=== PATIENT | male | born 1950 | race Caucasian/White ===

== ENCOUNTER 2020-09-19 14:11 | Emergency (ER) | payer MEDICARE, OTHER ==
--- NOTE | 2020-09-19 15:07 | EDM.PDOC ---
<Riki Miller - Last Filed: 09/19/20 16:43> ED HPI GENERAL MEDICAL PROBLEM - General Chief Complaint: General Stated Complaint: COVID + Time Seen by Provider: 09/19/20 14:40 - Related Data Allergies Allergy/AdvReac Type Severity Reaction Status Date / Time No Known Allergies Allergy Verified 09/19/20 14:50 Home Meds: Home Meds Aspirin 325 mg PO DAILY 05/17/16 [History] Furosemide 20 mg PO BID 05/17/16 [History] Losartan/Hydrochlorothiazide [Losartan-HCTZ 100-12.5 MG] 1 tab PO DAILY 05/17/16 [History] Metoprolol Tartrate 25 mg PO BID 05/17/16 [History] Montelukast Sodium 10 mg PO DAILY 05/17/16 [History] Red Yeast Rice 1,200 mg PO DAILY 05/17/16 [History] Cholecalciferol (Vitamin D3) [Vitamin D3] 2,000 unit PO DAILY 06/23/18 [History] Levothyroxine Sodium [Levo-T] 50 mcg PO BID 06/23/18 [History] Multivitamin [Multi-Vitamin Daily] 1 tab PO DAILY 06/23/18 [History] Tamsulosin HCl 0.4 mg PO DAILY 06/23/18 [History] Ubidecarenone [Coenzyme Q-10] 100 mg PO DAILY 06/23/18 [History] Departure - Departure Time of Disposition: 16:44 Disposition: DC/Tfer to [facility] 02 Clinical Impression: COVID-19 virus infection - Discharge Information Referrals: Cj Jordan MD [Primary Care Provider] - Forms: ED Department Discharge Additional Instructions: ALS transfer to [facility]. Normal saline at 125ml's/hr Dr. Prajapati, accepting physician. - Problem List & Annotations (1) COVID-19 virus infection SNOMED Code(s): 692244533 Code(s): U07.1 - COVID-19 Status: Acute - Assessment/Plan Plan: Consulted with [facility] d/t patient having elevated d-dimer with elevated creatinine. Will need further evaluation at this time. Dr. Prajapati, kindly accepted transfer. Dr. Prajapati advised giving Lovenox 1mg/kg, 6mg of Dexamethasone IV and starting IV fluids at 125ml's/hr. Patient has been stable in the ED. Vital signs are stable. discussed risks and benefits of transfer with Diego. Risks of transfer included worsening of condition, MVA, . Benefits of transfer included higher level of care facility, critical care monitoring and specialty interventions if needed. Risks of non-transfer included lack of specialized care/treatment/intervention, worsening of condition, . Benefits of non- transfer included staying in a familiar environment and close to home. Patient verbalized understanding and in agreement with transfer. is currently en route to [facility] in [place] as well at this time via another ambulance d/t complications of COVID 19. <Ting Casey D - Last Filed: 09/19/20 20:03> ED HPI GENERAL MEDICAL PROBLEM - General Source of Information: Reports: Patient History Limitations: Reports: No Limitations - History of Present Illness INITIAL COMMENTS - FREE TEXT/NARRATIVE: Patient presents to ER with complaints of weakness, body aches and shortness of breath. Was exposed to COVID while playing cards last week. has also tested positive and is currently hospitalized. patient has not been able to eat or drink well. Loss of taste and smell. No sinus congestion, sore throat or ear pain. Denies diarrhea or vomiting. Has frequent cough, nonproductive. Admits to being wheezy at times. Onset: Gradual Duration: Day(s): Location: Reports: Generalized Quality: Reports: Ache Severity: Moderate Improves with: Reports: Rest Associated Symptoms: Reports: Cough, cough w sputum, Fever/Chills, Headaches, Loss of Appetite, Malaise, Shortness of Breath, Weakness. Denies: Confusion, Chest Pain, Nausea/Vomiting Treatments CONCRETE MASON: Reports: Acetaminophen Past Medical History HEENT History: Reports: Allergic Rhinitis Cardiovascular History: Reports: Afib, Hypertension Gastrointestinal History: Reports: GERD Endocrine/Metabolic History: Reports: Diabetes, Type II Oncologic (Cancer) History: Reports: Prostate - Past Surgical History Neurological Surgical History: Reports: Lumbar Spine Social & Family History - Tobacco Use Tobacco Use Status *Q: Current Status Unknown ED ROS GENERAL - Review of Systems Review Of Systems: See Below Constitutional: Reports: Chills, Malaise, Weakness, Fatigue, Decreased Appetite. Denies: Fever HEENT: Reports: Rhinitis. Denies: Ear Pain, Sinus Problem, Throat Pain Respiratory: Reports: Shortness of Breath, Wheezing, Cough Cardiovascular: Denies: Chest Pain, Edema, Lightheadedness Endocrine: Reports: Fatigue GI/Abdominal: Denies: Abdominal Pain, Diarrhea, Nausea, Vomiting : Reports: No Symptoms Musculoskeletal: Reports: Joint Pain Skin: Reports: No Symptoms Neurological: Reports: Headache, Weakness ED EXAM, GENERAL - Physical Exam Exam: See Below Exam Limited By: No Limitations General Appearance: Alert, WD/WN, No Apparent Distress Ears: Normal External Exam, Normal TMs Nose: Normal Inspection, Normal Mucosa, No Blood Throat/Mouth: Normal Inspection, Normal Oropharynx Head: Normocephalic Neck: Normal Inspection, Supple, Non-Tender Respiratory/Chest: Decreased Breath Sounds Cardiovascular: Regular Rate, Rhythm GI/Abdominal: Normal Bowel Sounds, Soft, Non-Tender Extremities: Normal Inspection, Pedal Edema Neurological: Alert, Oriented Skin Exam: Warm, Dry Course - Vital Signs Last Recorded V/S: Last Vital Signs Temp 98.2 F 09/19/20 16:17 Pulse 72 09/19/20 16:17 Resp 22 H 09/19/20 16:17 BP 101/43 L 09/19/20 16:17 Pulse Ox 88 L 09/19/20 16:17 - Orders/Labs/Meds Orders: Active Orders 24 hr Category Date Time Status Chest 2V [CR] Stat Exams 09/19/20 14:34 Taken Labs: Laboratory Tests 09/19/20 09/19/20 09/19/20 Range/Units 14:30 14:33 14:48 WBC 6.7 (5.0-10.0) 10^3/uL RBC 4.14 L (4.50-6.00) 10^6/uL Hgb 12.5 L (14.0-18.0) g/dL Hct 37.2 L (40.0-54.0) % MCV 89.9 (82.0-94.0) fL MCH 30.2 (27.0-32.0) pg MCHC 33.6 (33.0-38.0) g/dL RDW Coeff of Blaine 14.0 (11.0-15.0) % Plt Count 193 (150-400) 10^3/uL Neut % (Auto) 83.7 (35-85) % Lymph % (Auto) 7.8 L (10-55) % [place] % (Auto) 7.8 (0-16) % Eos % (Auto) 0.5 (0-5) % Baso % (Auto) 0.2 (0-3) % Neut # (Auto) 5.57 (1.80-7.00) 10^3/uL Lymph # (Auto) 0.52 L (1.00-4.80) 10^3/uL [place]ion # (Auto) 0.52 (0.00-0.80) 10^3/uL Eos # (Auto) 0.03 (0.00-0.45) 10^3/uL Baso # (Auto) 0.01 10^3/uL PT 10.6 (9.7-12.3) SEC INR 1.05 (0.92-1.18) APTT 26.1 (23.2-32.3) SEC D-Dimer, Quantitative 3.65 H (0.00-0.50) Sodium (136-145) mEq/L Potassium (3.5-5.0) mEq/L Chloride (98-106) mEq/L Carbon Dioxide (21-32) mmol/L BUN (7-18) mg/dL Creatinine (0.7-1.3) mg/dL Est Cr Clr Drug Dosing Estimated GFR (MDRD) (>=60) mL/min Glucose (75-99) mg/dL Lactic Acid (0.4-2.0) mmol/L Calcium (8.4-10.1) mg/dL Total Bilirubin (0.0-1.0) mg/dL AST (15-37) U/L ALT (12-78) U/L Alkaline Phosphatase (46-116) U/L C-Reactive Protein (0.2-0.8) mg/dL Total Protein (6.4-8.2) g/dL Albumin (3.4-5.0) g/dL SARS CoV-2 RNA Rapid LOVELY Positive H (NEGATIVE) 09/19/20 09/19/20 Range/Units 14:48 14:48 WBC (5.0-10.0) 10^3/uL RBC (4.50-6.00) 10^6/uL Hgb (14.0-18.0) g/dL Hct (40.0-54.0) % MCV (82.0-94.0) fL MCH (27.0-32.0) pg MCHC (33.0-38.0) g/dL RDW Coeff of Blaine (11.0-15.0) % Plt Count (150-400) 10^3/uL Neut % (Auto) (35-85) % Lymph % (Auto) (10-55) % [place] % (Auto) (0-16) % Eos % (Auto) (0-5) % Baso % (Auto) (0-3) % Neut # (Auto) (1.80-7.00) 10^3/uL Lymph # (Auto) (1.00-4.80) 10^3/uL [place]ion # (Auto) (0.00-0.80) 10^3/uL Eos # (Auto) (0.00-0.45) 10^3/uL Baso # (Auto) 10^3/uL PT (9.7-12.3) SEC INR (0.92-1.18) APTT (23.2-32.3) SEC D-Dimer, Quantitative (0.00-0.50) Sodium 135 L (136-145) mEq/L Potassium 3.6 (3.5-5.0) mEq/L Chloride 97 L (98-106) mEq/L Carbon Dioxide 28 (21-32) mmol/L BUN 34 H D (7-18) mg/dL Creatinine 2.5 H D (0.7-1.3) mg/dL Est Cr Clr Drug Dosing TNP Estimated GFR (MDRD) 26 L (>=60) mL/min Glucose 175 H (75-99) mg/dL Lactic Acid 1.5 (0.4-2.0) mmol/L Calcium 8.5 (8.4-10.1) mg/dL Total Bilirubin 0.7 (0.0-1.0) mg/dL AST 33 (15-37) U/L ALT 27 (12-78) U/L Alkaline Phosphatase 113 (46-116) U/L C-Reactive Protein 21.4 H (0.2-0.8) mg/dL Total Protein 7.6 (6.4-8.2) g/dL Albumin 2.6 L (3.4-5.0) g/dL SARS CoV-2 RNA Rapid LOVELY (NEGATIVE) Meds: Medications Discontinued Medications Generic Name Dose Route Start Last Admin Trade Name Gorge PRN Reason Stop Dose Admin Dexamethasone 6 mg 09/19/20 16:28 09/19/20 16:56 Dexamethasone IVPUSH 09/19/20 16:29 6 mg ONETIME ONE Administration Enoxaparin Sodium 150 mg 09/19/20 16:30 09/19/20 16:56 Lovenox SUBCUT 150 mg Q12H JENNIFER Administration Sodium Chloride 1,000 mls @ 125 mls/hr 09/19/20 16:15 09/19/20 15:20 Normal Saline IV 125 mls/hr ASDIRECTED JENNIFER Administration - Re-Assessments/Exams Free Text/Narrative Re-Assessment/Exam: 09/19/20 1445 Labs drawn per nurse. COVID test obtained on my arrival. Oxygen sat 89-90% on arrival on room air, improves to 94% on 2 liters. 1510-COVID positive. 1530-Tor Miller to assume care of patient. Departure - Discharge Information *PRESCRIPTION DRUG MONITORING PROGRAM REVIEWED*: No *COPY OF PRESCRIPTION DRUG MONITORING REPORT IN PATIENT MAYRA: No Sepsis Event Note (ED) - Focused Exam Vital Signs: Vital Signs Temp Pulse Resp BP Pulse Ox 09/19/20 16:17 98.2 F 72 22 H 101/43 L 88 L
[2020-09-19 15:12] LABS: CHLORIDE,CL 97 mEq/L (98-106); SODIUM,NA 135 mEq/L (136-145)
[2020-09-19 15:28] LABS: PTT,PARTIAL THROMBOPLSTIN TIME 26.1 SEC (23.2-32.3)
[2020-09-19] MEDS ORDERED: Sodium Chloride 0.9% 1,000 ML IV SCH (16:15)
[2020-09-19 16:24] VITALS: BP 101/43; PULSE 72
[2020-09-19] MEDS ORDERED: Dexamethasone 4 MG/ML SDV IVPUSH ONE (16:28)
[2020-09-19] MEDS ORDERED: Enoxaparin 100 MG/1 ML Syringe SUBCUT SCH (16:30)
== END 2020-09-19 15:44 ==
LOC: CC.ED 14:11
DX: U07.1 COVID-19 (principal); I10 Essential (primary) hypertension; I48.91 Unspecified atrial fibrillation; E11.9 Type 2 diabetes mellitus without complications; Z79.82 Long term (current) use of aspirin; Z79.899 Other long term (current) drug therapy
CPT/HCPCS: 36415; 71046; 80053; 83605; 85025; 85379; 85610; 85730; 86140; 96374; 99285-25; J1100; J1650; J7030; U0002

== ENCOUNTER 2021-04-23 09:05 | Observation (INO) | payer MEDICARE, OTHER ==
[2021-04-23 10:12] LABS: PTT,PARTIAL THROMBOPLSTIN TIME 23.8 SEC (23.2-32.3)
[2021-04-23] MEDS ORDERED: Iopamidol 755 Mg/ML 100 ML Bottle IVPUSH ONE (11:42)
--- NOTE | 2021-04-23 12:51 | EDM.PDOC ---
ED HPI GENERAL MEDICAL PROBLEM - General Chief Complaint: General Stated Complaint: HEAD ACHE Time Seen by Provider: 04/23/21 09:25 Source of Information: Reports: Patient History Limitations: Reports: No Limitations - History of Present Illness INITIAL COMMENTS - FREE TEXT/NARRATIVE: Diego is a 71 yo male who presents to the ED with c/o speech issues. reports last known well to be approximately 1 pm yesterday afternoon. She reports since that time his sentences have "not been making sense." called EMS because refused to come in, but when EMS got there he refused EMS and then was agreeable to be brought in by his . At time of presentation, patient is unable to adequately explain to me what is going on. He originally says "I have a sore throat." Then he says no not throat, "sore headache." reports he has not been making any sense. Reports this morning he said he took his pills and then she found his pills scattered around the sink. He reports he did fall and hit his head yesterday, but believes he was having speech issues prior to hitting his head. He reports frontal headache. Denies any dizziness, syncope, vision changes, chest pain, shortness of breath, cough, N/V/D, urinary symptoms, edema, or pain. Denies any other injury with the fall. He is not on blood thinners. He has PMH of morbid obesity, hyperlipidemia not on statin due to intolerance, hypertension, type 2 DM diet controlled. Onset Date: 04/22/21 Onset Time: 13:00 Duration: Intermittent Associated Symptoms: Reports: Confusion, Headaches. Denies: Chest Pain, Cough, cough w sputum, Diaphoresis, Fever/Chills, Loss of Appetite, Malaise, Nausea/Vomiting, Rash, Seizure, Shortness of Breath, Syncope, Weakness Frontal Headache Pain Score (Numeric/FACES): 8 - Related Data Allergies Allergy/AdvReac Type Severity Reaction Status Date / Time alfalfa Allergy Swelling Verified 04/23/21 10:12 bee pollen Allergy Swelling Verified 04/23/21 10:12 ragweed pollen Allergy Swelling Verified 04/23/21 10:12 Home Meds: Home Meds Aspirin 325 mg PO DAILY 05/17/16 [History] Furosemide 20 mg PO BID 05/17/16 [History] Losartan/Hydrochlorothiazide [Losartan-HCTZ 100-12.5 MG] 1 tab PO DAILY 05/17/16 [History] Metoprolol Tartrate 25 mg PO BID 05/17/16 [History] Montelukast Sodium 10 mg PO DAILY 05/17/16 [History] Red Yeast Rice 1,200 mg PO DAILY 05/17/16 [History] Levothyroxine Sodium [Levo-T] 50 mcg PO DAILY 06/23/18 [History] Multivitamin [Multi-Vitamin Daily] 1 tab PO DAILY 06/23/18 [History] Tamsulosin HCl 0.4 mg PO DAILY 06/23/18 [History] Ubidecarenone [Coenzyme Q-10] 100 mg PO DAILY 06/23/18 [History] Acetaminophen [Tylenol Extra Strength] 2 tab PO BID 04/23/21 [History] Cetirizine [ZyrTEC] 1 tab PO DAILY 04/23/21 [History] Clopidogrel Bisulfate [Plavix] 75 mg PO DAILY #90 tablet 04/23/21 [Rx] Cyclobenzaprine [Flexeril] 1 tab PO ASDIRECTED 04/23/21 [History] Ibuprofen 2 tab PO ASDIRECTED PRN 04/23/21 [History] LORazepam [Ativan] 1 tab PO ASDIRECTED PRN 04/23/21 [History] Naproxen Sodium [Aleve] 1 tab PO DAILY 04/23/21 [History] Rosuvastatin Calcium [Crestor] 20 mg PO DAILY #30 tablet 04/23/21 [Rx] Turmeric/Turmeric Ext/Pepr Ext [Cvs Turmeric Complex 500 mg] 1 each PO DAILY 04/23/21 [History] Past Medical History HEENT History: Reports: Allergic Rhinitis Cardiovascular History: Reports: Afib, Hypertension Gastrointestinal History: Reports: GERD Musculoskeletal History: Reports: Gout Psychiatric History: Reports: Panic Attack Endocrine/Metabolic History: Reports: Diabetes, Type II Oncologic (Cancer) History: Reports: Prostate Other Oncologic History: hx of radiation for prostate ca - Infectious Disease History Infectious Disease History: Reports: Shingles - Past Surgical History HEENT Surgical History: Reports: Tonsillectomy Neurological Surgical History: Reports: Lumbar Spine Social & Family History - Family History Family Medical History: No Pertinent Family History - Tobacco Use Tobacco Use Status *Q: Former Tobacco User Used Tobacco, but Quit: Yes Month/Year Tobacco Last Used: 50 - Caffeine Use Caffeine Use: Reports: Coffee, Soda, Tea - Recreational Drug Use Recreational Drug Use: No ED ROS GENERAL - Review of Systems Review Of Systems: Comprehensive ROS is negative, except as noted in HPI. ED EXAM, GENERAL - Physical Exam Exam: See Below Exam Limited By: No Limitations General Appearance: Alert, WD/WN, No Apparent Distress Eye Exam: Bilateral Eye: EOMI, Normal Fundi, Normal Inspection, PERRL Head: Normocephalic, Other (tenderness right posterior scalp) Neck: Normal Inspection, Supple, Non-Tender, Full Range of Motion Respiratory/Chest: No Respiratory Distress, Lungs Clear, Normal Breath Sounds, No Accessory Muscle Use, Chest Non-Tender Cardiovascular: Normal Peripheral Pulses, Regular Rate, Rhythm, No Edema, No Gallop, No JVD, No Murmur, No Rub GI/Abdominal: Normal Bowel Sounds, Soft, Non-Tender, No Organomegaly, No Di stention, No Abnormal Bruit, No Mass Back Exam: Normal Inspection, Full Range of Motion, NT Extremities: Normal Inspection, Normal Range of Motion, Non-Tender, Normal Capillary Refill, No Pedal Edema Neurological: Alert, Oriented, CN II-XII Intact, Normal Gait, No Motor/Sensory Deficits, Other (patient with mild aphasia, unable to distinguish "feather and hammock" on NIH stroke scale, sentences with inaccurate words ) Psychiatric: Normal Affect, Normal Mood Skin Exam: Warm, Dry, Intact, Normal Color, No Rash Course - Vital Signs Last Recorded V/S: Last Vital Signs Temp 97.3 F 04/23/21 09:22 Pulse 92 04/23/21 10:35 Resp 16 04/23/21 10:35 BP 138/82 04/23/21 10:35 Pulse Ox 92 L 04/23/21 10:35 - Orders/Labs/Meds Orders: Active Orders 24 hr Category Date Time Status Ang Head [CT] Stat Exams 04/23/21 11:33 Taken CTA Neck W & W/O Contrast [Ang Neck] [CT] Stat Exams 04/23/21 11:33 Taken Head wo Cont [CT] Stat Exams 04/23/21 09:36 Taken Labs: Laboratory Tests 04/23/21 04/23/21 04/23/21 Range/Units 09:42 09:42 09:42 WBC 8.3 (5.0-10.0) 10^3/uL RBC 4.85 (4.50-6.00) 10^6/uL Hgb 14.8 (14.0-18.0) g/dL Hct 43.2 (40.0-54.0) % MCV 89.1 (82.0-94.0) fL MCH 30.5 (27.0-32.0) pg MCHC 34.3 (33.0-38.0) g/dL RDW Coeff of Blaine 13.6 (11.0-15.0) % Plt Count 188 (150-400) 10^3/uL Neut % (Auto) 80.9 (35-85) % Lymph % (Auto) 11.1 (10-55) % Falls % (Auto) 6.6 (0-16) % Eos % (Auto) 1.2 (0-5) % Baso % (Auto) 0.2 (0-3) % Neut # (Auto) 6.70 (1.80-7.00) 10^3/uL Lymph # (Auto) 0.92 L (1.00-4.80) 10^3/uL Falls # (Auto) 0.55 (0.00-0.80) 10^3/uL Eos # (Auto) 0.10 (0.00-0.45) 10^3/uL Baso # (Auto) 0.02 10^3/uL PT 10.5 (9.7-12.3) SEC INR 0.96 (0.92-1.18) APTT 23.8 (23.2-32.3) SEC Sodium (136-145) mEq/L Potassium (3.5-5.0) mEq/L Chloride (98-106) mEq/L Carbon Dioxide (21-32) mmol/L BUN (7-18) mg/dL Creatinine (0.7-1.3) mg/dL Est Cr Clr Drug Dosing mL/min Estimated GFR (MDRD) (>=60) mL/min Glucose (75-99) mg/dL Calcium (8.4-10.1) mg/dL Creatine Kinase (35-232) U/L Troponin I (0.00-0.06) ng/mL Urine Color Yellow (YELLOW) Urine Appearance Clear (CLEAR) Urine pH 6.0 (4.5-8.0) Ur Specific [place] 1.020 (1.003-1.020) Urine Protein 30 H (NEGATIVE) mg/dL Urine Glucose (UA) Negative (NEGATIVE) mg/dL Urine Ketones Negative (NEGATIVE) mg/dL Urine Occult Blood Negative (NEGATIVE) Urine Nitrite Negative (NEGATIVE) Urine Bilirubin Negative (NEGATIVE) Urine Urobilinogen 0.2 (0.2-1.0) EU/dL Ur Leukocyte Esterase Negative (NEGATIVE) Urine RBC 0-5 (0-5) /HPF Urine WBC 0-5 (0-5) /HPF 04/23/21 04/23/21 Range/Units 09:42 12:47 WBC (5.0-10.0) 10^3/uL RBC (4.50-6.00) 10^6/uL Hgb (14.0-18.0) g/dL Hct (40.0-54.0) % MCV (82.0-94.0) fL MCH (27.0-32.0) pg MCHC (33.0-38.0) g/dL RDW Coeff of Blaine (11.0-15.0) % Plt Count (150-400) 10^3/uL Neut % (Auto) (35-85) % Lymph % (Auto) (10-55) % Falls % (Auto) (0-16) % Eos % (Auto) (0-5) % Baso % (Auto) (0-3) % Neut # (Auto) (1.80-7.00) 10^3/uL Lymph # (Auto) (1.00-4.80) 10^3/uL Falls # (Auto) (0.00-0.80) 10^3/uL Eos # (Auto) (0.00-0.45) 10^3/uL Baso # (Auto) 10^3/uL PT (9.7-12.3) SEC INR (0.92-1.18) APTT (23.2-32.3) SEC Sodium 137 (136-145) mEq/L Potassium 3.9 (3.5-5.0) mEq/L Chloride 98 (98-106) mEq/L Carbon Dioxide 27 (21-32) mmol/L BUN 22 H (7-18) mg/dL Creatinine 1.2 D (0.7-1.3) mg/dL Est Cr Clr Drug Dosing 56.61 mL/min Estimated GFR (MDRD) 59 L (>=60) mL/min Glucose 187 H (75-99) mg/dL Calcium 9.4 (8.4-10.1) mg/dL Creatine Kinase 172 (35-232) U/L Troponin I 0.118 H 0.104 H (0.00-0.06) ng/mL Urine Color (YELLOW) Urine Appearance (CLEAR) Urine pH (4.5-8.0) Ur Specific [place] (1.003-1.020) Urine Protein (NEGATIVE) mg/dL Urine Glucose (UA) (NEGATIVE) mg/dL Urine Ketones (NEGATIVE) mg/dL Urine Occult Blood (NEGATIVE) Urine Nitrite (NEGATIVE) Urine Bilirubin (NEGATIVE) Urine Urobilinogen (0.2-1.0) EU/dL Ur Leukocyte Esterase (NEGATIVE) Urine RBC (0-5) /HPF Urine WBC (0-5) /HPF Meds: Medications Discontinued Medications Generic Name Dose Route Start Last Admin Trade Name Freq PRN Reason Stop Dose Admin Aspirin 325 mg 04/23/21 13:00 04/23/21 13:19 Aspirin 325 Mg Tab PO 04/23/21 13:01 325 mg ONETIME ONE Administration Atorvastatin Calcium 40 mg 04/23/21 13:01 04/23/21 13:29 Atorvastatin 20 Mg Tab PO 04/23/21 13:02 Not Given ONETIME ONE Atorvastatin Calcium 40 mg 04/23/21 13:30 04/23/21 13:29 Atorvastatin 20 Mg Tab PO 04/23/21 13:31 40 mg ONETIME ONE Administration Clopidogrel Bisulfate 300 mg 04/23/21 13:01 04/23/21 13:19 Clopidogrel 75 Mg Tab PO 04/23/21 13:02 300 mg ONETIME ONE Administration Iopamidol 100 ml 04/23/21 11:42 04/23/21 12:02 Iopamidol 755 Mg/Ml 100 Ml Bottle IVPUSH 04/23/21 11:43 100 ml ONETIME ONE Administration - Radiology Interpretation Free Text/Narrative:: Head CT negative for acute hemorrhage or ischemia. Small posterior hematoma. CT Results Date: 04/23/21 CT Results Time: 11:02 Departure - Departure Time of Disposition: 13:39 Disposition: Home, Self-Care 01 Condition: Fair Clinical Impression: TIA (transient ischemic attack) Headache Qualifiers: Headache type: post-traumatic Headache chronicity pattern: acute headache Intractability: not intractable Qualified Code(s): G44.319 - Acute post- traumatic headache, not intractable - Discharge Information *PRESCRIPTION DRUG MONITORING PROGRAM REVIEWED*: Not Applicable *COPY OF PRESCRIPTION DRUG MONITORING REPORT IN PATIENT MAYRA: Not Applicable Prescriptions: Rosuvastatin Calcium [Crestor] 20 mg PO DAILY #30 tablet Clopidogrel Bisulfate [Plavix] 75 mg PO DAILY #90 tablet Instructions: Transient Ischemic Attack, [id number] Referrals: Cj Jordan MD [Primary Care Provider] - Forms: ED Department Discharge Additional Instructions: - Continue aspirin daily - Start Plavix 75 mg daily - Start Crestor 20 mg daily - Tylenol as needed for headache - Follow up for ER recheck with Dr. Jordan FridayMay 01 at 1:00 pm - Return to ED for emergent needs Sepsis Event Note (ED) - Evaluation Sepsis Screening Result: No Definite Risk - Focused Exam Vital Signs: Vital Signs Temp Pulse Resp BP Pulse Ox 04/23/21 10:35 92 16 138/82 92 L 04/23/21 09:50 92 17 138/77 94 L 04/23/21 09:22 97.3 F 94 18 164/85 H 94 L 04/23/21 09:20 97.3 F 94 18 164/85 H 94 L - Problem List & Annotations (1) TIA (transient ischemic attack) SNOMED Code(s): 850780654 Code(s): G45.9 - TRANSIENT CEREBRAL ISCHEMIC ATTACK, UNSPECIFIED Status: Acute (2) Hypertension SNOMED Code(s): 57048150 Code(s): I10 - ESSENTIAL (PRIMARY) HYPERTENSION Status: Acute Qualifiers: Hypertension type: unspecified Qualified Code(s): I10 - Essential (primary) hypertension (3) Hyperlipidemia SNOMED Code(s): 07937250 Code(s): E78.5 - HYPERLIPIDEMIA, UNSPECIFIED Status: Acute Qualifiers: Hyperlipidemia type: mixed hyperlipidemia Qualified Code(s): E78.2 - Mixed hyperlipidemia (4) Headache SNOMED Code(s): 52386197 Code(s): R51.9 - HEADACHE, UNSPECIFIED Status: Acute Qualifiers: Headache type: post-traumatic Headache chronicity pattern: acute headache Intractability: not intractable Qualified Code(s): G44.319 - Acute post- traumatic headache, not intractable - My Orders Last 24 Hours: My Active Orders 04/23/21 09:36 Head wo Cont [CT] Stat 04/23/21 11:33 Ang Head [CT] Stat CTA Neck W & W/O Contrast [Ang Neck] [CT] Stat - Assessment/Plan Last 24 Hours: My Active Orders 04/23/21 09:36 Head wo Cont [CT] Stat 04/23/21 11:33 Ang Head [CT] Stat CTA Neck W & W/O Contrast [Ang Neck] [CT] Stat Assessment:: TIA Headache, post traumatic Hypertension Hyperlipidemia Plan: Patient is not a candidate for TPA given > 4 hours since symptom onset. Last known well yesterday at [address] head negative for acute stroke. Does reveal small posterior scalp hematoma. Consulted with Dr. Munguia, [facility] neurologist given ongoing speech di fficulties/apasia, who recommended proceeding with CTA head/neck. He did review CTA and felt to be negative. Recommended transfer to [place] for MRI given aphasia if patient agreeable. Patient refuses transfer to [place] for MRI. He also refuses MRI here on Friday. REports he cannot have an MRI as he can't sit still that long and has claustrophobia. Dr. Mcdaniels recommends giving him dose of aspirin and plavix. Recommends at least 90 days of Plavix and daily aspirin indefinitely. Also strongly recommends statin given severity of intracerebral arthrosclerosis. Patient reports he was intolerant to Lipitor in the past. Is agreeable to Crestor. Labs stable. Troponin indeterminant at 0.118 initially. Did repeat troponin after 3 hours and was 0.104. He has no chest pain or shortness of breath. Recommended at least observation stay to continue to monitor patient neuro/cardiac status. Patient refuses observation stay and is adamant about discharging home. NIH remains 1 throughout ED stay, although he does seem to be making more sense with sentence formation in comparison to arrival. Start Plavix and lipitor. Continue aspirin. Follow up with PCP for ER recheck 1 week, sooner if any issues/concerns. Return to ED for any emergent needs.
[2021-04-23] MEDS ORDERED: Aspirin 325 MG Tab PO ONE (13:00)
[2021-04-23] MEDS ORDERED: Clopidogrel 75 MG Tab PO ONE (13:01)
[2021-04-23] MEDS ORDERED: atorvaSTATin 20 MG Tab PO ONE ×3 (13:01→23:45)
[2021-04-23] MEDS ORDERED: Sodium Chloride 0.9% 10 ML Syringe FLUSH PRN (23:35)
[2021-04-23] MEDS ORDERED: Ibuprofen 200 MG Tab PO PRN (23:35)
[2021-04-23] MEDS ORDERED: Temazepam 15 MG Cap PO PRN (23:35)
[2021-04-23] MEDS ORDERED: Acetaminophen 325 MG Tab PO PRN (23:35)
[2021-04-23] MEDS ORDERED: Non-Formulary Medication 1 Each (Lorazepam 2 MG Tablet) PO PRN (23:38)
[2021-04-23] MEDS ORDERED: CYCLOBENZAPRINE 5 MG PO PRN (23:38)
[2021-04-24 07:45] LABS: CHLORIDE,CL 102 mEq/L (98-106); SODIUM,NA 140 mEq/L (136-145)
[2021-04-24] MEDS ORDERED: UBIDECARENONE 50 MG PO SCH (08:00)
[2021-04-24] MEDS ORDERED: Enoxaparin 40 MG/0.4 ML Syringe SUBCUT SCH ×2 (08:00→20:00)
[2021-04-24] MEDS ORDERED: Clopidogrel 75 MG Tab PO SCH (08:00)
[2021-04-24] MEDS ORDERED: Acetaminophen 500 MG Tab PO SCH (08:45)
[2021-04-24] MEDS ORDERED: Acetaminophen 500 MG Tab PO PRN (09:00)
[2021-04-24] MEDS: Aspirin 325 MG Tab PO SCH (09:00)
[2021-04-24] MEDS ORDERED: Losartan 100 MG Tab PO ONE (11:45)
[2021-04-24] MEDS ORDERED: Hydrochlorothiazide 12.5 MG Cap PO ONE (11:45)
[2021-04-24] MEDS ORDERED: CLOPIDOGREL 75 MG PO SCH (13:40)
[2021-04-24] MEDS ORDERED: TAMSULOSIN 0.4 MG PO SCH (20:00)
[2021-04-24] MEDS ORDERED: MONTELUKAST 10 MG PO SCH (20:00)
[2021-04-24] MEDS ORDERED: ROSUVASTATIN 40 MG PO SCH (20:00)
[2021-04-24] MEDS: METOPROLOL TARTRATE 50 MG PO SCH (20:33)
[2021-04-25] MEDS ORDERED: LEVOTHYROXINE 50 MCG PO SCH (07:00)
--- NOTE | 2021-04-25 07:13 | PN ---
DATE: 04/24/2021 S: Mr. Heller has an interesting history. Yesterday, he did have a fall, but at some point prior to this apparently, according to his , he was having some confusion and difficulty making words. He was brought into our facility, got a CT scan of his head along with a CTA of his neck. It was felt that he had an acute ischemic event, and Kiesha Joseph NP evaluated him and recommended transfer to a tertiary facility for further evaluation and MRI. He declined and ultimately went home against medical advice. Later that day, apparently, he had a frontal headache, which was worse and his speech was more indiscernible and called in and wanted him brought back here. He was in [place] at the time. We recommended he go to that facility. They did not. She brought him back home and ultimately brought him back into our emergency room late last night where he was ultimately admitted for presumptive CVA. CTA of the head and neck was reviewed and essentially negative so was his head CT. EKG was sinus rhythm with a bundle branch block, otherwise normal. His lab work has been fine. His vitals are normal since he has been here. This morning, he says he feels like he is back to normal. Has no further difficulty with speech. Has no headache. He has no signs of any deficits in the upper or lower extremities. O: HEENT: Grossly benign. NECK: His neck veins are flat. No carotid bruits heard. LUNGS: His lungs sounds are clear. CARDIAC: Tones are regular. ABDOMEN: Obese and soft. LOWER EXTREMITIES: Without edema. NEUROLOGIC: Thorough neurologic exam including cranial nerve evaluation, cerebellar signs, strength, sensation, and reflexes all appear normal. ASSESSMENT: 1. CEREBROVASCULAR ACCIDENT WITH RESOLUTION. 2. HYPERTENSION. 3. HYPERLIPIDEMIA. 4. MORBID OBESITY. P: We are going to get an echocardiogram on him, watch him further today, and he will ultimately need an MRI of the head scheduled as an outpatient. NANI/MICHEAL /[id number]
[2021-04-25] MEDS ORDERED: LOSARTAN 100 MG PO SCH (08:00)
[2021-04-25] MEDS ORDERED: CETIRIZINE 10 MG PO SCH (08:00)
[2021-04-25] MEDS ORDERED: FUROSEMIDE 20 MG PO SCH (08:00)
[2021-04-25] MEDS ORDERED: Multivitamin Tab PO SCH (08:00)
[2021-04-25] MEDS: METOPROLOL TARTRATE 50 MG PO SCH (08:48)
[2021-04-25] MEDS: Aspirin 325 MG Tab PO SCH (08:53)
[2021-04-25 08:54] VITALS: BP 139/72; PULSE 69
--- NOTE | 2021-04-25 09:20 | PCM.DCSUM1 ---
Discharge Summary - Hospital Course Free Text/Narrative:: History of Present Illness INITIAL COMMENTS - FREE TEXT/NARRATIVE: Diego is a 71 year old male who presented to the ER with with concerns of aphasia. felt he wasn't making sense with his speech. Had not been feeling well for over 24 hours. Had refused EMS after called to his home. Initial complaints by patient were vague. First stated had sore throat, then complained of headache. had reported he had fallen the day prior but his speech appeared to be affected prior to that. She also reported that his pills were found scattered in the sink. Denies any dizziness, syncope, vision changes, chest pain, shortness of breath, cough, N/V/D, urinary symptoms, edema, or pain. Denies any other injury with the fall. He is not on blood thinners. CT scan was negative. Labs show indeterminate troponin, otherwise unremarkable. Refused transfer to higher level of care to obtain MRI. CTA of head and neck were done after consulting with neurology. Was initially discharged home but brought him back in later for admission. Was started on Plavix and Crestor as well as ASA. Diagnosis: Stroke: No Modified [place] Scale: No Symptoms at All Modified Red Scale Score: 0 - Discharge Data Discharge Date: 04/25/21 Discharge Disposition: Home, Self-Care 01 Condition: Good - Referral to Home Health Primary Care Physician: Cj Jordan MD - Discharge Diagnosis/Problem(s) (1) TIA (transient ischemic attack) SNOMED Code(s): 347602945 ICD Code: G45.9 - TRANSIENT CEREBRAL ISCHEMIC ATTACK, UNSPECIFIED Status: Acute - Patient Summary/Data Complications: none Hospital Course: Patient doing well. Appetite is good. No swallowing difficulties. Ambulating without any weakness/deficit. Speech has cleared. labs have remained unremarkable. Neuro exam negative. Will discharge home on Plavix, aspirin and Crestor. - Patient Instructions Diet: Diabetic Diet Activity: As Tolerated - Discharge Plan *PRESCRIPTION DRUG MONITORING PROGRAM REVIEWED*: Not Applicable *COPY OF PRESCRIPTION DRUG MONITORING REPORT IN PATIENT MAYRA: Not Applicable Prescriptions/Med Rec: Rosuvastatin Calcium [Crestor] 20 mg PO DAILY #30 tablet Clopidogrel Bisulfate [Plavix] 75 mg PO DAILY #90 tablet Home Medications: Home Meds Aspirin 325 mg PO DAILY 05/17/16 [History] Furosemide 20 mg PO BID 05/17/16 [History] Metoprolol Tartrate 50 mg PO BID 05/17/16 [History] Montelukast Sodium 10 mg PO BEDTIME 05/17/16 [History] Red Yeast Rice 1,200 mg PO DAILY 05/17/16 [History] Levothyroxine Sodium [Levo-T] 50 mcg PO DAILY 06/23/18 [History] Multivitamin [Multi-Vitamin Daily] 1 tab PO DAILY 06/23/18 [History] Tamsulosin HCl 0.4 mg PO DAILY 06/23/18 [History] Ubidecarenone [Coenzyme Q-10] 100 mg PO DAILY 06/23/18 [History] Acetaminophen [Tylenol Extra Strength] 2 tab PO BID 04/23/21 [History] Cetirizine [ZyrTEC] 1 tab PO DAILY 04/23/21 [History] Clopidogrel Bisulfate [Plavix] 75 mg PO DAILY #90 tablet 04/23/21 [Rx] Cyclobenzaprine [Flexeril] 1 tab PO ASDIRECTED 04/23/21 [History] Ibuprofen 2 tab PO ASDIRECTED PRN 04/23/21 [History] LORazepam [Ativan] 1 tab PO ASDIRECTED PRN 04/23/21 [History] Naproxen Sodium [Aleve] 1 tab PO DAILY 04/23/21 [History] Rosuvastatin Calcium [Crestor] 20 mg PO DAILY #30 tablet 04/23/21 [Rx] Turmeric/Turmeric Ext/Pepr Ext [Cvs Turmeric Complex 500 mg] 1 each PO DAILY 04/23/21 [History] Losartan [Cozaar] 100 mg PO DAILY 04/24/21 [History] Patient Handouts: Transient Ischemic Attack, [id number] Forms: ED Department Discharge Referrals: Cj Jordan MD [Primary Care Provider] - (Is scheduled with Dr. Jordan next Friday) - Discharge Summary/Plan Comment DC Time >30 min.: No - General Info Date of Service: 04/25/21 Admission Dx/Problem (Free Text: Aphasia Functional Status: Reports: Pain Controlled, Tolerating Diet, Ambulating - Review of Systems General: Denies: Fever, Weakness, Fatigue, Malaise HEENT: Reports: No Symptoms Pulmonary: Denies: Shortness of Breath, Cough Cardiovascular: Denies: Chest Pain, Edema, Lightheadedness Gastrointestinal: Reports: No Symptoms Genitourinary: Reports: No Symptoms Musculoskeletal: Reports: No Symptoms Skin: Reports: No Symptoms Neurological: Reports: No Symptoms - Patient Data Vitals - Most Recent: Last Vital Signs Temp 97.2 F 04/25/21 04:00 Pulse 69 04/25/21 08:48 Resp 20 04/25/21 04:00 BP 139/72 04/25/21 08:48 Pulse Ox 94 L 04/25/21 04:00 Weight - Most Recent: 321 lb 11.2 oz Lab Results - Last 24 hrs: Laboratory Results - last 24 hr 04/24/21 04/25/21 Range/Units 20:30 08:24 POC Glucose 190 H 180 H (75-105) mg/dL Med Orders - Current: Current Medications Acetaminophen (Acetaminophen 325 Mg Tab) 650 mg PO Q4H PRN PRN Reason: Pain (Mild 1-3)/fever Acetaminophen (Acetaminophen 500 Mg Tab) 1,000 mg PO BID PRN PRN Reason: Pain/Fever Last Admin: 04/25/21 02:13 Dose: 1,000 mg Documented by: Aspirin (Aspirin 325 Mg Tab) 325 mg PO DAILY [facility] Last Admin: 04/25/21 08:53 Dose: 325 mg Documented by: Clopidogrel Bisulfate (Clopidogrel 75 Mg Tab Pt Own) 75 mg PO DAILY [facility] Last Admin: 04/25/21 08:50 Dose: 75 mg Documented by: Enoxaparin Sodium (Enoxaparin 40 Mg/0.4 Ml Syringe) 40 mg SUBCUT BEDTIME [facility] Last Admin: 04/24/21 20:33 Dose: 40 mg Documented by: Furosemide (Furosemide 20 Mg Tab Pt Own) 20 mg PO BID [facility] Last Admin: 04/25/21 08:47 Dose: 20 mg Documented by: Ibuprofen (Ibuprofen 200 Mg Tab) 600 mg PO Q6H PRN PRN Reason: Pain (mild 1-3) Levothyroxine Sodium (Levothyroxine 50 Mcg Tab Pt Own) 50 mcg PO ACBREAKFAST [facility] Last Admin: 04/25/21 06:20 Dose: 50 mcg Documented by: Losartan Potassium (Losartan 100 Mg Tab Pt Own) 100 mg PO DAILY [facility] Last Admin: 04/25/21 08:46 Dose: 100 mg Documented by: Metoprolol Tartrate (Metoprolol Tartrate 50 Mg Tab Pt OwnF) 50 mg PO BID [facility] Last Admin: 04/25/21 08:48 Dose: 50 mg Documented by: Montelukast Sodium (Montelukast 10 Mg Tab Pt Own) 10 mg PO BEDTIME [facility] Last Admin: 04/24/21 20:35 Dose: 10 mg Documented by: Multivitamins/Minerals/Vitamin C (Multivitamin Tab) 1 tab PO DAILY [facility] Last Admin: 04/25/21 08:53 Dose: 1 tab Documented by: Cetirizine [Zyrtec] 10 Mg Tablet Pt Own 0 tab PO DAILY [facility] Last Admin: 04/25/21 08:45 Dose: 1 tab Documented by: Ubidecarenone [ Coenzyme Q-10] 50 Mg Capsule Pt Own 0 mg PO DAILY [facility] Rosuvastatin ( Crestor) 40 Mg Tab Pt Own 0 each PO BEDTIME [facility] Last Admin: 04/24/21 20:34 Dose: 1 each Documented by: Sodium Chloride (Sodium Chloride 0.9% 10 Ml Syringe) 10 ml FLUSH ASDIRECTED PRN PRN Reason: Keep Vein Open Tamsulosin HCl (Tamsulosin 0.4 Mg Cap.Er Pt Own) 0.4 mg PO BEDTIME [facility] Last Admin: 04/24/21 20:32 Dose: 0.4 mg Documented by: Temazepam (Temazepam 15 Mg Cap) 15 mg PO BEDTIME PRN PRN Reason: Sleep Discontinued Medications Acetaminophen (Acetaminophen 500 Mg Tab) 1,000 mg PO BID [facility] Last Admin: 04/24/21 09:10 Dose: Not Given Documented by: Aspirin (Aspirin 325 Mg Tab) 325 mg PO ONETIME ONE Stop: 04/23/21 13:01 Last Admin: 04/23/21 13:19 Dose: 325 mg Documented by: Atorvastatin Calcium (Atorvastatin 20 Mg Tab) 40 mg PO ONETIME ONE Stop: 04/23/21 13:02 Last Admin: 04/23/21 13:29 Dose: Not Given Documented by: Atorvastatin Calcium (Atorvastatin 20 Mg Tab) 40 mg PO ONETIME ONE Stop: 04/23/21 13:31 Last Admin: 04/23/21 13:29 Dose: 40 mg Documented by: Atorvastatin Calcium (Atorvastatin 20 Mg Tab) 40 mg PO BEDTIME ONE Stop: 04/23/21 23:46 Last Admin: 04/23/21 23:56 Dose: Not Given Documented by: Clopidogrel Bisulfate (Clopidogrel 75 Mg Tab) 300 mg PO ONETIME ONE Stop: 04/23/21 13:02 Last Admin: 04/23/21 13:19 Dose: 300 mg Documented by: Clopidogrel Bisulfate (Clopidogrel 75 Mg Tab) 75 mg PO DAILY [facility] Last Admin: 04/24/21 09:00 Dose: 75 mg Documented by: Enoxaparin Sodium (Enoxaparin 40 Mg/0.4 Ml Syringe) 40 mg SUBCUT Q24H [facility] Last Admin: 04/24/21 09:00 Dose: Not Given Documented by: Hydrochlorothiazide (Hydrochlorothiazide 12.5 Mg Cap) 12.5 mg PO ONETIME ONE Stop: 04/24/21 11:46 Last Admin: 04/24/21 11:56 Dose: 12.5 mg Documented by: Iopamidol (Iopamidol 755 Mg/Ml 100 Ml Bottle) 100 ml IVPUSH ONETIME ONE Stop: 04/23/21 11:43 Last Admin: 04/23/21 12:02 Dose: 100 ml Documented by: Losartan Potassium (Losartan 100 Mg Tab) 100 mg PO ONETIME ONE Stop: 04/24/21 11:46 Last Admin: 04/24/21 11:56 Dose: 100 mg Documented by: Cyclobenzaprine [ Flexeril] 5 Mg Tablet Pt Own 0 tab PO Q8H PRN PRN Reason: Spasms Non-Formulary Medication (Lorazepam) 1 tab PO Q6H PRN PRN Reason: Anxiety - Exam General: Reports: Alert, Oriented HEENT: Reports: Mucous Membr. Moist/[place]: Reports: Supple Lungs: Reports: Clear to Auscultation, Normal Respiratory Effort Cardiovascular: Reports: Regular Rate, Regular Rhythm GI/Abdominal Exam: Normal Bowel Sounds, Soft, Non-Tender Extremities: Normal Inspection, No Pedal Edema Skin: Reports: Warm, Dry Neurological: Reports: No New Focal Deficit
== END 2021-04-25 11:03 | disposition home or self-care (01) ==
LOC: SUPCPDRO 09:05 → CC.ED 09:05 → CC.MS 22:37 → UNDOADMOB 22:37 → CC.MS 23:35
PROVIDERS: ADMIT Nurse Practitioner Family; ATTEND Family Medicine
DX: G45.9 Transient cerebral ischemic attack, unspecified (principal); G44.319 Acute post-traumatic headache, not intractable; E78.5 Hyperlipidemia, unspecified; I10 Essential (primary) hypertension; E11.9 Type 2 diabetes mellitus without complications; E66.01 Morbid (severe) obesity due to excess calories; Z68.42 Body mass index [BMI] 45.0-49.9, adult; Z91.048 Other nonmedicinal substance allergy status; Z91.030 Bee allergy status; Z87.891 Personal history of nicotine dependence; Z79.899 Other long term (current) drug therapy; Z79.82 Long term (current) use of aspirin
CPT/HCPCS: 36415; 70450; 70496; 70498; 80048; 81001; 82550; 82947; 84484; 85025; 85610; 85730; 86140; 93005; 93010; 93306; 96372; 99217; 99220; 99225; 99285; A9270; G0378; J1650; Q9967

== ENCOUNTER 2023-11-18 12:55 | Emergency (ER) | payer MEDICARE, OTHER ==
[2023-11-18] MEDS ORDERED: Iopamidol 755 Mg/ML 100 ML Bottle IVPUSH ONE (13:08)
[2023-11-18 13:28] LABS: BASOPHILS ABSOLUTE AUTO 0.03 10^3/uL (0.00-0.50); BASOPHILS PERCENT AUTO 0.5 % (0-1); EOSINOPHILS ABSOLUTE AUTO 0.12 10^3/uL (0.00-1.50); EOSINOPHILS PERCENT AUTO 1.9 % (0-6); HEMATOCRIT 40.2 % (42.0-52.0); HEMOGLOBIN 13.6 g/dL (14.0-18.0); IMMATURE GRAN ABSOLUTE AUTO 0.01 10^3/uL (0.00-0.49); IMMATURE GRAN PERCENT AUTO 0.2 % (0.0-4.9); LYMPHOCYTES ABSOLUTE AUTO 1.25 10^3/uL (0.60-5.00); LYMPHOCYTES PERCENT AUTO 19.7 % (24-44); MEAN CORPUSCULAR HEMOGLOBIN 30.4 pg (27.0-32.0); MEAN CORPUSCULAR HGB CONC 33.8 g/dL (32.0-36.0); MEAN CORPUSCULAR VOLUME 89.9 fL (83.0-97.0); MONOCYTES ABSOLUTE AUTO 0.45 10^3/uL (0.00-1.50); MONOCYTES PERCENT AUTO 7.1 % (0-10); NEUTROPHILS ABSOLUTE AUTO 4.48 x10^3/uL (1.80-8.00); NEUTROPHILS PERCENT AUTO 70.6 % (41-71); PLATELET COUNT,PLT 150 10^3/uL (150-400); RED BLOOD CELL COUNT 4.47 x10^6/uL (4.50-6.00); WHITE BLOOD CELL COUNT,WBC 6.3 10^3/uL (4.0-11.0)
[2023-11-18 13:49] LABS: ALBUMIN 3.5 g/dL (3.4-5.0); BILIRUBIN TOTAL 0.4 mg/dL (0.0-1.0); CALCIUM 11.2 mg/dL (8.4-10.1); CREATININE 1.8 mg/dL (0.7-1.3); EST CRCL DRUG DOSING (CG) 36.61 mL/min; MAGNESIUM 1.4 mg/dL (1.8-2.4); POTASSIUM,K 4.2 mEq/L (3.5-5.0); PROTEIN TOTAL,TP 7.7 g/dL (6.4-8.2)
[2023-11-18] MEDS ORDERED: Sodium Chloride 0.9% 1,000 ML IV STA (14:03)
[2023-11-18 17:33] VITALS: BP 117/54; PULSE 59
== END 2023-11-18 16:30 | disposition home or self-care (01) ==
LOC: CC.ED 12:55
DX: R55 Syncope and collapse (principal); I48.91 Unspecified atrial fibrillation; R06.00 Dyspnea, unspecified; I10 Essential (primary) hypertension; K21.9 Gastro-esophageal reflux disease without esophagitis; E11.9 Type 2 diabetes mellitus without complications; Z79.82 Long term (current) use of aspirin; Z79.899 Other long term (current) drug therapy; Z91.030 Bee allergy status; Z91.018 Allergy to other foods
CPT/HCPCS: 36415; 71275; 74175; 80053; 83735; 83880; 84484; 85025; 85379; 87804; 93005; 93246; 96360; 96361; 99285-25; J7030; Q9967; U0002

== ENCOUNTER 2024-07-08 04:42 | Emergency (ER) | payer MEDICARE, OTHER ==
[2024-07-08] MEDS ORDERED: Sodium Chloride 0.9% 10 ML Syringe FLUSH PRN (05:01)
[2024-07-08 05:19] LABS: BASOPHILS ABSOLUTE AUTO 0.02 10^3/uL (0.00-0.50); BASOPHILS PERCENT AUTO 0.2 % (0-1); EOSINOPHILS ABSOLUTE AUTO 0.08 10^3/uL (0.00-1.50); EOSINOPHILS PERCENT AUTO 0.8 % (0-6); HEMATOCRIT 39.4 % (42.0-52.0); HEMOGLOBIN 13.3 g/dL (14.0-18.0); IMMATURE GRAN ABSOLUTE AUTO 0.01 10^3/uL (0.00-0.49); IMMATURE GRAN PERCENT AUTO 0.1 % (0.0-4.9); LYMPHOCYTES ABSOLUTE AUTO 0.77 10^3/uL (0.60-5.00); LYMPHOCYTES PERCENT AUTO 8.2 % (24-44); MEAN CORPUSCULAR HGB CONC 33.8 g/dL (32.0-36.0); MEAN CORPUSCULAR VOLUME 88.7 fL (83.0-97.0); MONOCYTES ABSOLUTE AUTO 0.59 10^3/uL (0.00-1.50); MONOCYTES PERCENT AUTO 6.3 % (0-10); NEUTROPHILS ABSOLUTE AUTO 7.96 x10^3/uL (1.80-8.00); NEUTROPHILS PERCENT AUTO 84.4 % (41-71); PLATELET COUNT,PLT 143 10^3/uL (150-400); RED BLOOD CELL COUNT 4.44 x10^6/uL (4.50-6.00); WHITE BLOOD CELL COUNT,WBC 9.4 10^3/uL (4.0-11.0)
[2024-07-08] MEDS: Ondansetron 4 MG/2 ML SDV IVPUSH STA ×2 (05:20→05:54)
[2024-07-08] MEDS: Morphine 2 MG/ML SYRINGE IVPUSH ONE (05:36)
[2024-07-08 05:39] LABS: ALANINE AMINOTRANSFERASE,ALT 20 U/L (12-78); ALBUMIN 3.8 g/dL (3.4-5.0); ALKALINE PHOSPHATASE 83 U/L (46-116); ASPARTATE AMNIOTRANSFERASE,AST 18 U/L (15-37); BILIRUBIN TOTAL 0.3 mg/dL (0.0-1.0); BLOOD UREA NITROGEN,BUN 37 mg/dL (7-18); C-REACTIVE PROTEIN < 0.50 mg/dL (<=0.50); CALCIUM 9.6 mg/dL (8.4-10.1); CARBON DIOXIDE,CO2 29 mmol/L (21-32); CHLORIDE,CL 99 mEq/L (98-106); CREATININE 1.8 mg/dL (0.7-1.3); EST CRCL DRUG DOSING (CG) 36.05 mL/min; ESTIMATED GFR 39 mL/min (>=60); GLUCOSE RANDOM 186 mg/dL (75-99); LIPASE 65 U/L (16-77); MAGNESIUM 1.3 mg/dL (1.8-2.4); PROTEIN TOTAL,TP 7.9 g/dL (6.4-8.2); SODIUM,NA 142 mEq/L (136-145)
[2024-07-08] MEDS: Sodium Chloride 0.9% 1,000 ML IV SCH (05:43)
[2024-07-08 06:01] VITALS: BP 152/70; PULSE 69
[2024-07-08] MEDS: Alum Hydrox/Mag Hydrox/Simeth 30 ML, Lidocaine 2% 15 ML PO ONE (06:24)
[2024-07-08] MEDS: HYDROmorphone 0.5 MG/0.5 ML Syringe IVPUSH ONE ×4 (07:02→11:41)
[2024-07-08] MEDS: Piperacillin/Tazobactam 4.5 GM in Sodium Chloride 0.9% 100 ML IV ONE (10:59)
== END 2024-07-08 12:05 | disposition home or self-care (01) ==
LOC: CC.ED 04:42
DX: K81.0 Acute cholecystitis (principal); I48.91 Unspecified atrial fibrillation; E11.9 Type 2 diabetes mellitus without complications; K21.9 Gastro-esophageal reflux disease without esophagitis; I10 Essential (primary) hypertension; Z95.5 Presence of coronary angioplasty implant and graft; Z91.018 Allergy to other foods; Z91.030 Bee allergy status; Z79.890 Hormone replacement therapy; Z79.02 Long term (current) use of antithrombotics/antiplatelets; Z79.899 Other long term (current) drug therapy; Z79.84 Long term (current) use of oral hypoglycemic drugs; Z79.82 Long term (current) use of aspirin; Z86.16 Personal history of COVID-19
CPT/HCPCS: 36415; 71045; 74176; 76705; 80053; 83690; 83735; 84484; 85025; 86140; 93005; 96361; 96365; 96375; 96376; 99284-25; A9270-GY; J1170; J2270; J2405; J2543; J3490; J7030

== ENCOUNTER 2025-10-26 23:34 | Inpatient (IN) | payer MEDICARE, OTHER ==
[2025-10-27 00:45] LABS: BASOPHILS ABSOLUTE AUTO 0.03 10^3/uL (0.00-0.50); BASOPHILS PERCENT AUTO 0.4 % (0-1); EOSINOPHILS ABSOLUTE AUTO 0.01 10^3/uL (0.00-1.50); EOSINOPHILS PERCENT AUTO 0.1 % (0-6); IMMATURE GRAN ABSOLUTE AUTO 0.02 10^3/uL (0.00-0.49); IMMATURE GRAN PERCENT AUTO 0.2 % (0.0-4.9); LYMPHOCYTES ABSOLUTE AUTO 0.39 10^3/uL (0.60-5.00); LYMPHOCYTES PERCENT AUTO 4.8 % (24-44); MONOCYTES ABSOLUTE AUTO 0.67 10^3/uL (0.00-1.50); MONOCYTES PERCENT AUTO 8.3 % (0-10); NEUTROPHILS ABSOLUTE AUTO 7.00 x10^3/uL (1.80-8.00); NEUTROPHILS PERCENT AUTO 86.2 % (41-71); PLATELET COUNT,PLT 116 10^3/uL (150-400); RED BLOOD CELL COUNT 3.37 x10^6/uL (4.50-6.00); WHITE BLOOD CELL COUNT,WBC 8.1 10^3/uL (4.0-11.0)
[2025-10-27 00:56] LABS: ALANINE AMINOTRANSFERASE,ALT 22.0 U/L (12-78); ASPARTATE AMNIOTRANSFERASE,AST 29.0 U/L (15-37); BILIRUBIN TOTAL 0.5 mg/dL (0.0-1.0); BLOOD UREA NITROGEN,BUN 26.0 mg/dL (7-18); CARBON DIOXIDE,CO2 28.0 mmol/L (21-32); CHLORIDE,CL 97.0 mEq/L (98-106); CREATININE 1.9 mg/dL (0.7-1.3); EST CRCL DRUG DOSING (CG) 33.62 mL/min; ESTIMATED GFR 36.0 mL/min (>=60); GLUCOSE RANDOM 162.0 mg/dL (75-99); POTASSIUM,K 4.4 mEq/L (3.5-5.0); PROTEIN TOTAL,TP 6.7 g/dL (6.4-8.2); SODIUM,NA 135.0 mEq/L (136-145)
[2025-10-27] MEDS ORDERED: Sodium Chloride 0.9% 10 ML Syringe FLUSH PRN (02:41)
[2025-10-27] MEDS ORDERED: Ondansetron 4 MG/2 ML SDV IV PRN (02:41)
[2025-10-27] MEDS ORDERED: Ondansetron 4 MG Tab.DIS PO PRN (02:41)
[2025-10-27] MEDS: Furosemide 40 MG/4 ML VIAL IVPUSH SCH (03:33)
[2025-10-27] MEDS: Dexamethasone 4 MG/ML SDV IVPUSH ONE (03:42)
[2025-10-27] MEDS: Potassium Chloride 20 MEQ Tab.ER PO SCH (07:59)
[2025-10-27] MEDS: Dexamethasone Sod Phos Preservative Free 10 MG/ML Vial IVPUSH SCH (07:59)
[2025-10-28] MEDS: REMDESIVIR 0 MG ONE (07:36)
[2025-10-28 08:00] LABS: BASOPHILS ABSOLUTE AUTO 0.01 10^3/uL (0.00-0.50); BASOPHILS PERCENT AUTO 0.2 % (0-1); EOSINOPHILS ABSOLUTE AUTO 0.00 10^3/uL (0.00-1.50); EOSINOPHILS PERCENT AUTO 0.0 % (0-6); IMMATURE GRAN ABSOLUTE AUTO 0.01 10^3/uL (0.00-0.49); IMMATURE GRAN PERCENT AUTO 0.2 % (0.0-4.9); LYMPHOCYTES ABSOLUTE AUTO 0.31 10^3/uL (0.60-5.00); LYMPHOCYTES PERCENT AUTO 5.8 % (24-44); MONOCYTES ABSOLUTE AUTO 0.35 10^3/uL (0.00-1.50); MONOCYTES PERCENT AUTO 6.5 % (0-10); NEUTROPHILS ABSOLUTE AUTO 4.71 x10^3/uL (1.80-8.00); NEUTROPHILS PERCENT AUTO 87.3 % (41-71); PLATELET COUNT,PLT 120 10^3/uL (150-400); RED BLOOD CELL COUNT 3.29 x10^6/uL (4.50-6.00); WHITE BLOOD CELL COUNT,WBC 5.4 10^3/uL (4.0-11.0)
[2025-10-28 09:20] LABS: ALANINE AMINOTRANSFERASE,ALT 18.0 U/L (12-78); ASPARTATE AMNIOTRANSFERASE,AST 15.0 U/L (15-37); BILIRUBIN DIRECT 0.1 mg/dL (0.0-0.3); BILIRUBIN TOTAL 0.3 mg/dL (0.0-1.0); BLOOD UREA NITROGEN,BUN 38.0 mg/dL (7-18); CARBON DIOXIDE,CO2 28.0 mmol/L (21-32); CHLORIDE,CL 99.0 mEq/L (98-106); CREATININE 1.5 mg/dL (0.7-1.3); EST CRCL DRUG DOSING (CG) 42.58 mL/min; ESTIMATED GFR 48.0 mL/min (>=60); GLUCOSE RANDOM 291.0 mg/dL (75-99); POTASSIUM,K 4.0 mEq/L (3.5-5.0); PROTEIN TOTAL,TP 6.7 g/dL (6.4-8.2); SODIUM,NA 136.0 mEq/L (136-145)
[2025-10-29 07:35] LABS: BASOPHILS ABSOLUTE AUTO 0.01 10^3/uL (0.00-0.50); BASOPHILS PERCENT AUTO 0.2 % (0-1); EOSINOPHILS ABSOLUTE AUTO 0.00 10^3/uL (0.00-1.50); EOSINOPHILS PERCENT AUTO 0.0 % (0-6); IMMATURE GRAN ABSOLUTE AUTO 0.02 10^3/uL (0.00-0.49); IMMATURE GRAN PERCENT AUTO 0.4 % (0.0-4.9); LYMPHOCYTES ABSOLUTE AUTO 0.41 10^3/uL (0.60-5.00); LYMPHOCYTES PERCENT AUTO 7.4 % (24-44); MONOCYTES ABSOLUTE AUTO 0.23 10^3/uL (0.00-1.50); MONOCYTES PERCENT AUTO 4.1 % (0-10); NEUTROPHILS ABSOLUTE AUTO 4.90 x10^3/uL (1.80-8.00); NEUTROPHILS PERCENT AUTO 87.9 % (41-71); PLATELET COUNT,PLT 128 10^3/uL (150-400); RED BLOOD CELL COUNT 3.11 x10^6/uL (4.50-6.00); WHITE BLOOD CELL COUNT,WBC 5.6 10^3/uL (4.0-11.0)
[2025-10-29 07:38] LABS: ALANINE AMINOTRANSFERASE,ALT 15.0 U/L (12-78); ASPARTATE AMNIOTRANSFERASE,AST 19.0 U/L (15-37); BILIRUBIN DIRECT 0.1 mg/dL (0.0-0.3); BILIRUBIN TOTAL 0.1 mg/dL (0.0-1.0); BLOOD UREA NITROGEN,BUN 36.0 mg/dL (7-18); CARBON DIOXIDE,CO2 28.0 mmol/L (21-32); CHLORIDE,CL 99.0 mEq/L (98-106); CREATININE 1.3 mg/dL (0.7-1.3); EST CRCL DRUG DOSING (CG) 49.13 mL/min; POTASSIUM,K 4.4 mEq/L (3.5-5.0); PROTEIN TOTAL,TP 6.3 g/dL (6.4-8.2); SODIUM,NA 135.0 mEq/L (136-145)
[2025-10-29 07:46] LABS: ESTIMATED GFR 57.0 mL/min (>=60); GLUCOSE RANDOM 315.0 mg/dL (75-99)
[2025-10-29 08:30] VITALS: BP 120/59; PULSE 65
== END 2025-10-29 11:55 | disposition home or self-care (01) | DRG 291 ==
LOC: CC.ED 23:34 → UNDOADMIN 10-27 01:30 → CC.MS 10-27 01:30
PROVIDERS: ADMIT Physician Assistant Medical; ATTEND Physician Assistant Medical
PROC: 3E0333Z Introduction of Anti-inflammatory into Peripheral Vein, Percutaneous Approach (ICD-10-PCS; principal; 2025-10-27)
PROC: XW033E5 Introduction of Remdesivir Anti-infective into Peripheral Vein, Percutaneous Approach, New Technology Group 5 (ICD-10-PCS; 2025-10-27)
DX: I11.0 Hypertensive heart disease with heart failure (principal); U07.1 COVID-19; I50.9 Heart failure, unspecified; I48.91 Unspecified atrial fibrillation; K21.9 Gastro-esophageal reflux disease without esophagitis; M10.9 Gout, unspecified; E11.9 Type 2 diabetes mellitus without complications; E03.9 Hypothyroidism, unspecified; Z88.8 Allergy status to other drugs, medicaments and biological substances; Z95.5 Presence of coronary angioplasty implant and graft; Z79.01 Long term (current) use of anticoagulants; Z91.09 Other allergy status, other than to drugs and biological substances; Z79.1 Long term (current) use of non-steroidal anti-inflammatories (NSAID); Z85.46 Personal history of malignant neoplasm of prostate; Z98.890 Other specified postprocedural states; Z95.1 Presence of aortocoronary bypass graft; Z79.890 Hormone replacement therapy; Z79.899 Other long term (current) drug therapy; Z86.16 Personal history of COVID-19; Z90.49 Acquired absence of other specified parts of digestive tract
CPT/HCPCS: 36415; 71046; 80053; 82248; 83605; 83880; 85025; 86140; 87040; 87428-QW; 94761; 97161-GP; 99223; 99233; 99238; 99285; A9270-GY; J0248; J1100; J1938; J7040; J7050; J8610